=== PATIENT | female | born 1980 | race African-American/Black ===

== ENCOUNTER 2017-10-08 17:40 | Emergency (ER) | payer MEDICAID ==
[~2017-10-08] VITALS: Ht 157.5 cm; Wt 58.0 kg
[2017-10-08 18:03] VITALS: Ht 157.5 cm; Wt 58.0 kg
[2017-10-08 19:03] VITALS: BP 106/70
== END 2017-10-08 18:27 | disposition left against medical advice (07) ==
LOC: ED 17:40
DX: Z53.21 Procedure and treatment not carried out due to patient leaving prior to being seen by health care provider (principal)

== ENCOUNTER 2017-12-11 10:13 | Emergency (ER) | payer MEDICAID ==
[~2017-12-11] VITALS: Ht 157.5 cm; Wt 59.0 kg
[2017-12-11 10:18] VITALS: BP 136/78; Ht 157.5 cm; Wt 59.0 kg
== END 2017-12-11 12:30 | disposition left against medical advice (07) ==
LOC: ED 10:13
DX: Z53.21 Procedure and treatment not carried out due to patient leaving prior to being seen by health care provider (principal)